=== PATIENT | male | born 1980 | race African-American/Black ===

== ENCOUNTER 2018-03-09 13:52 | Emergency (ER) | payer OTHER ==
[~2018-03-09] VITALS: Ht 170.2 cm; Wt 57.0 kg
[2018-03-09 16:08] LABS: CHLORIDE 106 mEq/L (98-107); INR 1.1; PROTHROMBIN TIME 11.6 sec (9.4-11.6)
[2018-03-09 16:09] LABS: BASOPHILS % 1.2 % (0.0-2.0); HEMOGLOBIN. 15.8 g/dL (14.0-18.0); LYMPHOCYTES % 41.8 % (20.0-50.0); MEAN CORPUSCULAR HEMOGLOBIN 31.2 pg (28.0-32.0); MEAN CORPUSCULAR VOLUME 90.9 fL (80.0-94.0); MEAN PLATELET VOLUME 9.5 fl (7.4-10.4); MONOCYTES % 11.2 % (2.0-8.0); NEUTROPHILS % 39.8 % (40.0-76.0); PLATELET 160 x1000/uL (130-400); RED BLOOD CELL COUNT 5.06 mill/uL (4.7-6.1); RED CELL DISTRIBUTION WIDTH 12.8 % (11.6-14.6)
[2018-03-09 22:46] LABS: CLARITY URINE CLEAR (CLEAR); COLOR URINE YELLOW (YELLOW); KETONES URINE NEGATIVE (NEGATIVE); LEUKOCYTE ESTERASE URINE NEGATIVE (NEGATIVE); NITRITE URINE NEGATIVE (NEGATIVE); OCCULT BLOOD URINE NEGATIVE (NEGATIVE); PROTEIN URINE 1+ (NEGATIVE); SPECIFIC GRAVITY URINE 1.023 (1.005-1.030); UROBILINOGEN URINE 0.2 E.U./dL (0.2-1.0)
[2018-03-10 00:56] VITALS: BP 122/70
== END 2018-03-10 01:03 | disposition home or self-care (01) ==
LOC: ER 16:09
DX: R10.32 Left lower quadrant pain (principal); Z98.890 Other specified postprocedural states; Z87.891 Personal history of nicotine dependence
CPT/HCPCS: 36415; 71045; 74176; 80053; 81003; 83690; 85025; 85610; 93005; 99285

== ENCOUNTER 2020-02-04 14:25 | Emergency (ER) | payer OTHER ==
[~2020-02-04] VITALS: Ht 172.7 cm; Wt 65.0 kg
[2020-02-04] MEDS ORDERED: VISCOUS LIDOCAINE 2% 15 ML UDC PO STA (16:03)
[2020-02-04] MEDS ORDERED: IBUPROFEN 600MG TABLET PO ONE (16:15)
[2020-02-04 16:37] VITALS: BP 123/88
== END 2020-02-04 16:39 | disposition home or self-care (01) ==
LOC: ER 14:25
DX: J03.80 Acute tonsillitis due to other specified organisms (principal); I10 Essential (primary) hypertension
CPT/HCPCS: 99283